=== PATIENT | male | born 1980 | race Caucasian/White ===

== ENCOUNTER 2019-10-01 06:02 | Emergency (ER) | payer MEDICAID, OTHER ==
[~2019-10-01] VITALS: Ht 177.8 cm; Wt 81.6 kg
[2019-10-01] MEDS ORDERED: KETOROLAC TROMETH 60MG/2ML VIAL IM ONE (07:00)
[2019-10-01] MEDS ORDERED: METOCLOPRAMIDE HCL 5MG/ml INJ 2ml VIAL IV ONE (07:00)
[2019-10-01] MEDS ORDERED: METOCLOPRAMIDE HCL 5MG/ml INJ 2ml VIAL IM ONE (07:15)
[2019-10-01 07:29] VITALS: BP 123/92
== END 2019-10-01 08:28 | disposition home or self-care (01) ==
LOC: ER 06:02
DX: M75.51 Bursitis of right shoulder (principal)
CPT/HCPCS: 73030; 96372; 99284; J1885; J2765

== ENCOUNTER 2024-03-10 19:54 | Emergency (ER) | payer BC, OTHER ==
[~2024-03-10] VITALS: Ht 177.8 cm; Wt 82.7 kg
[2024-03-10] MEDS ORDERED: IBUP-1456 PO (20:42)
[2024-03-10 20:45] VITALS: BP 110/73; PULSE 85; RESP 18; TEMP 98.3; O2SAT 97
== END 2024-03-10 21:40 | disposition home or self-care (01) ==
LOC: ER 19:54
DX: S20.211A Contusion of right front wall of thorax, initial encounter (principal); Z79.899 Other long term (current) drug therapy; Z90.49 Acquired absence of other specified parts of digestive tract; X58.XXXA Exposure to other specified factors, initial encounter; Y93.89 Activity, other specified; Y92.89 Other specified places as the place of occurrence of the external cause; Y99.8 Other external cause status
CPT/HCPCS: 71101

== ENCOUNTER 2025-01-12 07:27 | Emergency (ER) | payer BC, OTHER ==
[~2025-01-12] VITALS: Ht 177.8 cm; Wt 87.2 kg
[~2025-01-12 07:27] MED LIST: IBUP-1456 PO
--- NOTE | 2025-01-12 08:03 | ED.PDOC ---
Musculoskeletal HPI Comments 44-year-old male presents to the ER with a prior surgical history of appendectomy in the chief complaint of left lower extremity pain. Patient reports on having left ankle pain for three days S/P generator falling onto the ankle. Patient notes on taking ibuprofen with no help. Still able to bear weight Denies previous surgeries to the ankle Denies redness or swelling around the ankle Denies fever chills night sweats nausea vomiting Chief Complaint: Lower Extremity Time Seen by MD: 07:50 Primary Care Provider: UNKNOWN Reviewed Notes: Nurses Notes, Medications, Allergies Allergies: Coded Allergies: NO KNOWN ALLERGIES (Unverified , 10/01/19) Home Meds Active Scripts Tramadol HCl (Tramadol HCl) 50 Mg Tab, 50 MG PO Q8HP PRN for 2 Days, #6 TAB 0 Refills Prov:KAREN SAAB NP 01/12/25 Ibuprofen (Ibuprofen) 800 Mg Tab, 1 TAB PO TID PRN, #30 TAB 0 Refills Prov:JACKIE AQUINO 03/10/24 Information Source: Patient Mode of Arrival: Ambulatory Location: Left Extremity Location: Ankle Timing: Days Prehospital treatment: None Severity: Moderate Hand Dominance: Right Mechanism: Blunt Trauma (Generator falling on extremity) Circumstances: Accident Onset of Symptoms: Spontaneous Symptoms: Swelling, Pain DVT Risk Factors: NONE Associated signs and symptoms: Swelling Past Medical History PAST MEDICAL HISTORY: Denies Surgical History: Appendectomy Family History Family History: Reviewed,noncontributory to illness, Unknown Social History Smoker: Non-Smoker Alcohol: Occasionally Drugs: Denies Drug Use Lives In: Home Constitutional: denies: chills, diaphoresis, fatigue, fever, malaise, sweats, weakness, others EENTM: denies: blurred vision, double vision, ear bleeding, ear discharge, ear drainage, ear pain, ear ringing, eye pain, eye redness, hearing loss, mouth pain, mouth swelling, nasal discharge, nose bleeding, nose congestion, nose pain, photophobia, tearing, throat pain, throat swelling, voice changes, others Respiratory: denies: cough, hemoptysis, orthopnea, SOB at rest, shortness of breath, SOB with excertion, stridor, wheezing, others Cardiovascular: denies: chest pain, dizzy spells, diaphoresis, Dyspnea on exertion, edema, irregular heart beat, left arm pain, lightheadedness, palpitations, PND, syncope, others Gastrointestinal: denies: abdomen distended, abdominal pain, blood streaked bowels, constipated, diarrhea, dysphagia, difficulty swallowing, hematemesis, melena, nausea, poor appetite, poor fluid intake, rectal bleeding, rectal pain, vomiting, others Genitourinary: denies: burning, dysuria, flank pain, frequency, hematuria, incontinence, penile discharge, penile sore, pain, testicle pain, testicle swelling, urgency, others Neurological: denies: dizziness, fainting, headache, left sided numbness, left sided weakness, numbness, paresthesia, pre-existing deficit, right sided numbness, right sided weakness, seizure, speech problems, tingling, tremors, weakness, others Musculoskeletal: reports: others (Left ankle pain); denies: back pain, gout, joint pain, joint swelling, muscle pain, muscle stiffness, neck pain Integumetry: denies: bruises, change in color, change in hair/nails, dryness, laceration, lesions, lumps, rash, wounds, others Allergic/Immunocompromised: denies: Difficulty Healing, Frequent Infections, Hives, Itching, others Hematologic/Lymphatic: denies: anemia, blood clots, easy bleeding, easy bruising, swollen glands, others Endocrine: denies: excessive hunger, excessive sweating, excessive thirst, excessive urination, flushing, intolerance to cold, intolerance to heat, unexplained weight gain, unexplained weight loss, others Psychiatric: denies: anxiety, bipolar disorder, depression, hopeless, panic disorder, schizophrenia, sleepless, suicidal, others All Other Systems: Reviewed and Negative Physical Exam General Appearance: No Apparent Distress, Normal HEENT: Normal ENT Inspection, Pharynx Normal, TMs Normal Neck: Full Range of Motion, Non-Tender, Normal, Normal Inspection Respiratory: Chest Non-Tender, Lungs Clear, No Accessory Muscle Use, No Respiratory Distress, Normal Breath Sounds Cardiovascular: No Murmur, No Gallop, Regular Rate/Rhythm Breast Exam: Deferred Gastrointestinal: No Organomegaly, Non Tender, No Pulsatile Mass, Normal Bowel Sounds, Soft Genitalia: Deferred Pelvic: Deferred Rectal: Deferred Extremities: No calf tenderness, Normal capillary refill, Normal inspection, Normal range of motion, No pedal edema, Swelling, Tender (No gross abnormality on inspection. Localized TTP to the medial malleolus. Dorsiflexion plantar flexion strong. Neurovascular sensation is intact and cap refill less than t hree) Musculoskeletal : Apperance: Normal Neurologic: Alert, No Motor Deficits, Normal Affect, Normal Mood, No Sensory Deficits Cerebellar Function: Normal Reflexes: Normal Skin: Dry, Normal Color, Warm Lymphatic: No Adenopathy Was a procedure done? Was a procedure done?: No Differential Diagnosis EXT Differential Diagnosis: Fracture, Sprain, Dislocation X-Ray, Labs, Meds, VS Vital Signs Date Time Temp Pulse Resp B/P (MAP) Pulse Ox O2 Delivery O2 Flow Rate FiO2 01/12/25 10:50 98.4 73 18 132/91 (105) 98 98.4 01/12/25 10:50 73 18 98 Room Air* 0 21 01/12/25 07:28 97.8 85 15 117/80 96 97.8 X-Ray, Labs, Meds, VS Comment 44-year-old male presents to the ER with a prior surgical history of appendectomy in the chief complaint of left lower extremity pain. Patient arrives alert and oriented, ABC's intact, afebrile, vital signs stable, saturating well in room air Diagnostic imaging ordered by me and results interpreted by radiology : X-ray to the left foot History and examination consistent of muscular injury X-rays ordered, read by radiologist and reviewed by me Take Medication Rx w/ food as needed for pain Recommended heat therapy Reviewed RICE management Avoid heavy lifting or strenuous activity Recommended range of motion exercises and limit heavy activity for 1 week If no improvement advised patient to return to the emergency department for follow-up. Discussed possibility of a occult fracture Patient is stable for discharge at this time. External notes reviewed. Test results and diagnostic imaging interpreted. All diagnostic findings, discharge care, education and instructions provided Follow-up with PCP in 2 to 3 days Patient verbalized understanding and agreed to treatment plan Vital signs stable, afebrile, no acute distress noted Patient ambulatory with strong steady gait Advised to return precautions for any new or worsening symptoms, return to ER immediately for re-evaluation Patient is aware that the purpose of this visit was for an acute medical emergency requiring emergent stabilization. Chronic conditions, including malignancies have not been ruled out. Patient is instructed to follow up with PCP as directed and discharge instructions for continued care and workup. If unable to arrange follow-up, patient is to return to the emergency department for reassessment. Patient (parent or legal guardian if applicable) was given verbal and written discharge instructions and acknowledges understanding. Additional MDM Review of External, Non-ED records: External records reviewed. Discussion with independent historian (EMS, family) history obtained from the patient/parents (if applicable) at bedside Chronic conditions affecting care: None Social determinants of health affecting care: None Consideration of admission (observation or admission): I considered escalation of care to admission for this patient, however given the reassuring workup, the patient is safe for outpatient management. Tests considered but not performed: CT but no indication Prescription medication considered but not given: Time of 1ST Reevaluation: 08:20 Reevaluation 1ST: Unchanged Time of 2ND Reevaluation: 09:00 Reevaluation 2ND: Improved Patient Education/Counseling: Diagnosis, Treatment, Prognosis Family Education/Counseling: No Family Present Departure 1 Departure Time of Disposition: 09:47 Impression: Primary Impression: Left foot pain Disposition: 01 HOME / SELF CARE / HOMELESS Condition: Fair e-Prescriptions Tramadol HCl (Tramadol HCl) 50 Mg Tab 50 MG PO Q8HP PRN for 2 Days, #6 TAB 0 Refills Prov: KAREN SAAB NP 01/12/25 Discharged With: Self Critical Care Note Critical Care Time?: No Stability Stability form required: No Heart Score Heart Score: Heart Score Response (Comments) Value History N/A 0 EKG N/A 0 Age N/A 0 Risk Factors N/A 0 Troponin N/A 0 Total 0 I personally scribed for KAREN SAAB NP ([email or web address]) on 01/12/25 at 08:03. Electronically submitted by Tyrell Youssef ([email or web address]). KAREN SAAB NP Jan 12, 2025 08:03
--- NOTE | 2025-01-12 08:38 | DVH ---
XY L FOOT 3 VIEW XRAY, INDICATION: r/o fracture. cushed injury TECHNICAL DATA: Frontal, oblique and lateral views were obtained of the left foot. COMPARISON: None FINDINGS: No fracture is identified. Joint spaces are maintained. Alignment is anatomic. The hallux sesamoids a ppear normal. Soft tissues are within normal limits. Heel spur. IMPRESSION: 1. No acute fracture or dislocation of the left foot.
--- NOTE | 2025-01-12 08:40 | DVH ---
PROCEDURE: Left ankle radiographs. INDICATION: r/o fracture. cushed injury TECHNIQUE: 3 views of the left ankle were obtained. COMPARISON: None FINDINGS: There is an osseous fragment along the lateral surface of the talus. No dislocation. Late ral soft tissue swelling. IMPRESSION: 1. Osseous fragment along the lateral surface of the talus could represent an avulsion fracture. The re is adjacent soft tissue swelling.
[2025-01-12] MEDS ORDERED: TRAM-626 PO (09:47)
[2025-01-12 10:50] VITALS: BP 132/91; PULSE 73; RESP 18; TEMP 98.4; O2SAT 98
== END 2025-01-12 10:56 | disposition home or self-care (01) ==
LOC: ER 07:27
DX: M79.672 Pain in left foot (principal); M25.572 Pain in left ankle and joints of left foot; Z90.49 Acquired absence of other specified parts of digestive tract
CPT/HCPCS: 73610; 73630